=== PATIENT | male | born 1995 | race Hispanic/Latino ===

== ENCOUNTER 2021-09-13 11:01 | Inpatient (IN) | payer SELFPAY ==
[2021-09-13 13:03] LABS: Absolute Lymphocytes (CBC) 1.8 K/uL (0.7-4.9); Lymphocytes % 13.3 % (15.3-44.8); MPV 7.5 fL (7.6-11.3); RBC Red Blood Cell Count 4.84 M/uL (4.33-5.43)
[2021-09-13 13:17] LABS: ALT/SGPT 34 U/L (12-78); AST/SGOT 12 U/L (15-37); Albumin 3.7 g/dL (3.4-5.0); Alkaline Phosphatase 94 U/L (45-117); BUN Blood Urea Nitrogen 10 mg/dL (7-18); Bicarbonate 27 mmol/L (21-32); Bilirubin Total 0.6 mg/dL (0.2-1.0); Glucose Level 100 mg/dL (74-106); Lipase 31 U/L (73-393); Potassium 3.8 mmol/L (3.5-5.1); Protein, Total 8.4 g/dL (6.4-8.2); Sodium Level 137 mmol/L (136-145)
--- NOTE | 2021-09-13 13:25 | RAD REPORT ---
EXAM DESCRIPTION: CT - Abdomen Pelvis W Contrast - 09/13/2021 1:00 pm CLINICAL HISTORY: Abdominal pain/aneurysm COMPARISON: none. TECHNIQUE: Computed axial tomography of the abdomen pelvis was obtained. 100 cc Isovue-300 was admin istered intravenously. Oral contrast was not requested which limits evaluation of bowel. All CT scans are performed using dose optimization technique as appropriate and may include automated exposure control or mA/KV adjustment according to patient size. FINDINGS: Mild fatty liver Spleen, pancreas, adrenal and kidneys appear unremarkable. A 1.5 centimeter soft tissue structure li es between the spleen and left kidney. Normal appendix Several sigmoid diverticula. Marked stranding adjacent to the sigmoid colon. 2.5 centimeter low to in termediate density mass abuts the sigmoid compatible with early abscess. No free air. Trace amount of free fluid. Small inguinal hernias contain fat. Small umbilical hernia IMPRESSION: Marked sigmoid diverticulitis. 2.5 centimeter early abscess abuts sigmoid colon 1.5 centimeter soft tissue structure lies between the spleen and left kidney. 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 However, it is recommended that patient have a [facility] ultrasound in 3 months for re-evaluation
--- NOTE | 2021-09-13 14:00 | ER ---
Nurse's Notes [facility] Name: Nabor To Jr Age: 25 yrs Sex: Male : 1995 Arrival Date: 09/13/2021 Time: 11:04 Bed 14 Private MD: Diagnosis: Diverticulitis of large intestine with perforation and abscess Presentation: 09/13 13:39 Chief complaint: Patient states: LLQ cramping that began 1 week ago. Pt also states "at aa5 night I feel like I run fevers and I was having diarrhea but about 3 or 4 days I've been constipated now". Denies blood in stool. Coronavirus screen: At this time, the client does not indicate any symptoms associated with coronavirus-19. Ebola Screen: No symptoms or risks identified at this time. Initial Sepsis Screen: Does the patient meet any 2 criteria? HR > 90 bpm. Does the patient have a suspected source of infection? No. Patient's initial sepsis screen is negative. Risk Assessment: Do you want to hurt yourself or someone else? Patient reports no desire to harm self or others. Onset of symptoms was August 2021. 13:39 Acuity: JABARI 3 aa5 13:39 Method Of Arrival: Ambulatory aa5 Historical: - Allergies: 13:41 No Known Allergies; aa5 - PMHx: 13:41 None; aa5 - PSHx: 13:41 None; aa5 - Immunization history:: Flu vaccine is not up to date. - Social history:: Smoking status: Patient/guardian denies using tobacco. Screenin:00 Abuse screen: Denies threats or abuse. Nutritional screening: No deficits noted. aa5 Tuberculosis screening: No symptoms or risk factors identified. Fall Risk None identified. Assessment: 13:39 General: Appears uncomfortable, Behavior is calm, cooperative. Pain: Complains of pain aa5 in left lower quadrant Pain does not radiate. Pain currently is 4 out of 10 on a pain scale. Quality of pain is described as crampy, Pain began 1 week ago Is episodic, lasting a few minutes. Neuro: Level of Consciousness is awake, alert, obeys commands, Oriented to person, place, time, situation. Cardiovascular: Heart tones S1 S2 present Rhythm is regular. Respiratory: Airway is patent Respiratory effort is even, unlabored, Respiratory pattern is regular, symmetrical. GI: Abdomen is round non-distended, Bowel sounds present X 4 quads. Abd is soft X 4 quads Abdomen is tender to palpation in left lower quadrant Reports constipation, nausea, Patient currently denies vomiting. : No signs and/or symptoms were reported regarding the genitourinary system. EENT: No signs and/or symptoms were reported regarding the EENT system. Derm: Skin is pink, warm \\T\\ dry. Musculoskeletal: Range of motion: intact in all extremities. 15:02 Reassessment: Patient is alert, oriented x 3, equal unlabored respirations, skin aa5 warm/dry/pink. 16:15 Reassessment: Patient is alert, oriented x 3, equal unlabored respirations, skin aa5 warm/dry/pink. Patient states feeling better. Pain: Pain currently is 3 out of 10 on a pain scale. Vital Signs: 13:39 BP 140 / 66; Pulse 96; Resp 20 S; Temp 99.2(O); Pulse Ox 99% on R/A; Weight 108.86 kg aa5 (R); Height 5 ft. 7 in. (170.18 cm) (R); Pain 4/10; 15:00 BP 122 / 64; Pulse 92; Resp 18 S; Pulse Ox 98% on R/A; aa5 17:45 BP 108 / 70; Pulse 94; Resp 18 S; Temp 99.8(O); Pulse Ox 98% on R/A; aa5 13:39 Body Mass Index 37.59 (108.86 kg, 170.18 cm) aa5 ED Course: 11:04 Patient arrived in ED. jj6 12:07 Joey Edwards PA is PHCP. jmm 12:08 Charles Fam MD is Attending Physician. jmm 12:55 Inserted saline lock: 20 gauge in right forearm, using aseptic technique. Blood mb7 collected. 12:55 CBC with Diff Sent. mb7 12:55 CMP Sent. mb7 12:55 Lipase Sent. mb7 12:55 Patient has correct armband on for positive identification. mb7 13:02 CT Abd/Pelvis - IV Contrast Only In Process Unspecified. EDMS 13:33 Patient placed in an exam room, on a stretcher. aa5 13:39 Naz Menchaca, MEERA is Primary Nurse. aa5 13:41 Triage completed. aa5 13:58 Wesly Gallagher MD is Hospitalizing Provider. [facility] 16:13 SARS-COV-2 RT PCR (Document "Date of Onset" if Symptomatic) Sent. 18:00 No provider procedures requiring assistance completed. Patient admitted, IV remains in aa5 place. 09/14 18:01 Primary Nurse role handed off by Naz Menchaca, MEERA law Administered Medications: 09/13 15:02 Drug: morphine 4 mg Route: IVP; Site: right forearm; aa5 15:15 Follow up: Response: No adverse reaction aa5 15:02 Drug: Zofran (Ondansetron) 4 mg Route: IVP; Site: right forearm; aa5 15:15 Follow up: Response: No adverse reaction aa5 15:09 Drug: Zosyn (piperacillin-tazobactam) 3.375 grams Route: IVPB; Infused Over: 60 mins; aa5 Site: right forearm; 16:10 Follow up: IV Status: Completed infusion aa5 15:09 Drug: NS 0.9% (30 ml/kg) 30 ml/kg Route: IV; Rate: bolus; Site: right forearm; aa5 17:00 Follow up: IV Status: Completed infusion; IV Intake: 2000ml ; 2000cc per provider aa5 Intake: 17:00 IV: 2000ml; Total: 2000ml. aa5 Outcome: 13:59 Decision to Hospitalize by Provider. [facility] 18:00 Admitted to ER Hold. Please see [facility] for further documentation. aa5 18:00 Condition: stable 18:00 Instructed on the need for admit, Demonstrated understanding of instructions. 09/14 20:44 Admitted to Med/surg accompanied by tech, via wheelchair, room 210, with chart, Report ll3 called to MEERA Ruiz Condition: stable Instructed on the need for admit, Demonstrated understanding of instructions. 20:45 Patient left the ED. ll3 Signatures: Dispatcher [employer] EDMS Chyna Sullivan Joel, PA PA m Naz Menchaca, RN RN aa5 Ronna Robb6 Yefri Best RN RN ll3 Ayse Ramos Becky Trupin
--- NOTE | 2021-09-13 14:00 | EDPHYS ---
Physician Documentation [facility] Name: Nabor To Jr Age: 25 yrs Sex: Male : 1995 Arrival Date: 09/13/2021 Time: 11:04 Bed 14 Private MD: ED Physician Chrales Fam HPI: 09/13 13:10 This 25 yrs old Male presents to ER via Unassigned with complaints of jmm Abdominal Cramping, Fever, BOWEL ISSUES. 13:10 The patient presents with abdominal pain. Onset: The symptoms/episode began/occurred jmm gradually, 1 week(s) ago. The symptoms do not radiate. Associated signs and symptoms: Pertinent positives: constipation, diarrhea. The symptoms are described as achy. Modifying factors: The symptoms are alleviated by nothing, the symptoms are aggravated by nothing. This is a 25 year old male with no known chronic medical conditions that presents to the ED with complaints of left lower abdominal pain beginning approx 1 week ago with intermittent episodes of fever, diarrhea, and constipation. Denies surgical hx. Historical: - Allergies: 13:41 No Known Allergies; aa5 - PMHx: 13:41 None; aa5 - PSHx: 13:41 None; aa5 - Immunization history:: Flu vaccine is not up to date. - Social history:: Smoking status: Patient/guardian denies using tobacco. ROS: 13:10 Cardiovascular: Negative for chest pain, palpitations, and edema, Respiratory: Negative jmm for shortness of breath, cough, wheezing, and pleuritic chest pain. 13:10 Constitutional: Positive for body aches, fever. 13:10 Abdomen/GI: Positive for abdominal pain, nausea, diarrhea, constipation. 13:10 All other systems are negative. Exam: 13:10 Constitutional: This is a well developed, well nourished patient who is awake, alert, jmm and in no acute distress. Head/Face: atraumatic. Eyes: EOMI, no conjunctival erythema appreciated ENT: Moist Mucus Membranes Neck: Trachea midline, Supple Chest/axilla: Normal chest wall appearance and motion. Cardiovascular: Regular rate and rhythm. No edema appreciated Respiratory: Normal respirations, no respiratory distress appreciated 13:10 Back: Normal ROM Skin: General appearance color normal MS/ Extremity: Moves all extremities, no obvious deformities appreciated, no edema noted to the lower extremities Neuro: Awake and alert Psych: Behavior is normal, Mood is normal, Patient is cooperative and pleasant 13:10 Abdomen/GI: Inspection: abdomen appears normal, Bowel sounds: normal, Palpation: soft, mild abdominal tenderness, in the left lower quadrant. Vital Signs: 13:39 BP 140 / 66; Pulse 96; Resp 20 S; Temp 99.2(O); Pulse Ox 99% on R/A; Weight 108.86 kg aa5 (R); Height 5 ft. 7 in. (170.18 cm) (R); Pain 4/10; 15:00 BP 122 / 64; Pulse 92; Resp 18 S; Pulse Ox 98% on R/A; aa5 17:45 BP 108 / 70; Pulse 94; Resp 18 S; Temp 99.8(O); Pulse Ox 98% on R/A; aa5 13:39 Body Mass Index 37.59 (108.86 kg, 170.18 cm) aa5 MDM: 12:32 Patient medically screened. [facility] 13:46 Data reviewed: vital signs, nurses notes, lab test result(s), radiologic studies, CT [facility] scan. 13:56 ED course: I discussed the patient with Dr. Bryan whom will consult on admission. I [facility] discussed the patient with Dr. Gallagher whom accepted the patient to his service. Patient is currently afebrile, normotensive, with a normal HR. I do not currently suspect sepsis. Will admit due to development of abscess. Patient given IV antibiotics upon CT findings. Patient is currently alert and nontoxic in appearance. . 09/13 12:18 Order name: CBC with Diff; Complete Time: 13:[address] [facility] 09/13 12:18 Order name: CMP; Complete Time: 13:[address] [facility] 09/13 12:18 Order name: Lipase; Complete Time: 13:[address] [facility] 09/13 13:32 Order name: SARS-COV-2 RT PCR (Document "Date of Onset" if Symptomatic); Complete Time: [facility] 16:47 09/13 13:50 Order name: Blood Culture Adult (2) [facility] 09/13 15:01 Order name: CBC with Automated Diff [facility] 09/13 15:01 Order name: CBC with Automated Diff [facility] 09/13 15:01 Order name: Comprehensive Metabolic Panel [facility] 09/13 15:01 Order name: Comprehensive Metabolic Panel [facility] 09/13 15:01 Order name: Magnesium [facility] 09/13 15:01 Order name: Magnesium [facility] 09/13 16:40 Order name: Urine Dipstick-Ancillary; Complete Time: 16:40 [facility] 09/14 08:10 Order name: Gram Stain--Aerobic Bottle [facility] 09/14 09:51 Order name: Gram Stain--Aerobic Bottle [facility] 09/13 12:18 Order name: CT Abd/Pelvis - IV Contrast Only; Complete Time: 13:[address] [facility] 09/13 12:18 Order name: IV Saline Lock; Complete Time: 12:[address] [facility] 09/13 12:18 Order name: Labs collected and sent; Complete Time: 12:[address] [facility] 09/13 12:18 Order name: Urine Dipstick-Ancillary (obtain specimen); Complete Time: 15:[address] [facility] 09/13 15:00 Order name: CONS Physician Consult [facility] 09/13 15:01 Order name: NPO EDMO Administered Medications: 15:02 Drug: morphine 4 mg Route: IVP; Site: right forearm; aa5 15:15 Follow up: Response: No adverse reaction aa5 15:02 Drug: Zofran (Ondansetron) 4 mg Route: IVP; Site: right forearm; aa5 15:15 Follow up: Response: No adverse reaction aa5 15:09 Drug: Zosyn (piperacillin-tazobactam) 3.375 grams Route: IVPB; Infused Over: 60 mins; aa5 Site: right forearm; 16:10 Follow up: IV Status: Completed infusion aa5 15:09 Drug: NS 0.9% (30 ml/kg) 30 ml/kg Route: IV; Rate: bolus; Site: right forearm; aa5 17:00 Follow up: IV Status: Completed infusion; IV Intake: 2000ml ; 2000cc per provider aa5 Disposition Summary: 09/13/21 13:59 Hospitalization Ordered Hospitalization Status: Inpatient Admission jm Provider: Wesly Gallagher Condition: Stable jmm Problem: new jmm Symptoms: are unchanged jmm Bed/Room Type: Standard [facility] Location: Telemetry/MedSurg (Inpatient)(09/14/21 12:49) bd Room Assignment: 210(09/14/21 18:43) cg Diagnosis - Diverticulitis of large intestine with perforation and abscess [facility] Forms: - Medication Reconciliation Form [facility] - SBAR form [facility] Addendum: 09/18/2021 07:45 Co-signature as Attending Physician, Charles Fam MD I agree with the assessment and c gonzalez plan of care. Signatures: Dispatcher [employer] EDMS Chyna Sullivan Corey, MD MD cha Mickail, Joel, PA PA jmm Calderon, Audri RN RN aa5 Katarina Kauffman RN RN cg Corrections: (The following items were deleted from the chart) 09/13 20:31 13:59 Telemetry/MedSurg (Inpatient) [facility] 20: 13:59 [facility] 09/14 12:49 09/13 20:31 [facility] ER HOLD cg 09/14 12:49 09/13 20:31 ERHOLD- cg 09/14 13:25 12:49 407 bd 18:43 13:25 bd cg
[2021-09-13] MEDS ORDERED: PIPERACIL/TAZO 3.375 GM VIAL IV ONE (14:43)
[2021-09-13] MEDS ORDERED: ONDANSETRON 4 MG/2 ML VIAL ONE ×3 (14:43→23:44)
[2021-09-13] MEDS ORDERED: MORPHINE 4 MG/ML SYR ONE ×3 (14:43→23:44)
[2021-09-13] MEDS ORDERED: NA CHLORIDE 0.9% 2,000 ML ONE (14:43)
[2021-09-13] MEDS ORDERED: NA CHLORIDE 0.9% 100 ML IV ONE (14:43)
--- NOTE | 2021-09-13 16:05 | P.HP ---
Certification for Inpatient Patient admitted to: Inpatient With expected LOS: >2 Midnights Practitioner: I am a practitioner with admitting privileges, knowledge of patient current condition, hospital course, and medical plan of care. Services: Services provided to patient in accordance with Admission requirements found in Title 42 Section 412.3 of the Code of Federal Regulations Patient History Date of Service: 09/13/21 Reason for admission: perforated diverticulitis History of Present Illness: 25yo M with no significant past medical history presents to the ED with 1 week of worsening abdominal pain, associated with nausea, constipation, decreased appetite, and chills. Pain is in the lower left abdomen. Nothing seems to really make this better or worse. He denies any prior history of GI issues. No family history of GI issues. He has never had surgery. Pain does not radiate In the ED, CT abdomen/pelvis noted diverticulitis abscess. Allergies No Known Allergies Allergy (Unverified 09/13/21 15:39) - Past Medical/Surgical History Past Medical History: Patient denies medical history Past Surgical History: Patient denies surgical history - Family History Family History: Reviewed- Non-Contributory - Social History Smoking Status: Former smoker Alcohol use: Yes CD- Drugs: No Place of Residence: Home Review of Systems 10-point ROS is otherwise unremarkable Physical Examination - Physical Exam General: Alert, Oriented x3, Mild distress HEENT: EOMI, Sclerae nonicteric Neck: Supple, No LAD Respiratory: Clear to auscultation bilaterally, Normal air movement Cardiovascular: No edema, Regular rate/rhythm Gastrointestinal: Soft and benign, Non-distended, Tenderness (in LLQ) Musculoskeletal: No erythema, No tenderness Integumentary: No rashes, No significant lesion Neurological: Normal speech, Normal affect - Studies Laboratory Data (last 24 hrs) 09/13/21 12:53: Sodium 137, Potassium 3.8, BUN 10, Creatinine 0.93, Glucose 100, Total Bilirubin 0.6, AST 12 L, ALT 34, Alkaline Phosphatase 94, Lipase 31 L 09/13/21 12:53: WBC 13.7 H, Hgb 14.2, Hct 42.0, Plt Count 350 Assessment and Plan - Advance Directives Does patient have a Living Will: No Does patient have a Durable POA for Healthcare: No Physician Review Additional Text: Problem list Acute diverticulitis, perforation and abscess SIRS 1/4, for leukocytosis. Does not appear septic Continue IV Zosyn, IV fluids N.p.o., but okay for ice chips per surgery Serial abdominal exams Repeat labs in a.m. Pain medication as needed VTE: SCDs Code: full Dispo: home, ~3-4 days Time Spent Managing Pts Care (In Minutes): 65
--- NOTE | 2021-09-13 16:20 | P.CNS ---
Date of Consult: 09/13/21 PC: This 25-year-old male presented to the emergency room with severe left cordate quadrant abdominal pain for diagnosis and treatment. HPC: Patient states has had this pain about a week. Was very severe about 3 to 4 days ago. However today he could no longer stand it and came to the hospital PSHx: Negative PMHx: Negative Social Hx: No known allergies Sys R: No cough, wheeze, shortness of breath. No history of diabetes or hypertension. States he is otherwise in pretty good health. 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 O/E: Awake alert vital signs are stable, clinically looks surprisingly well HEENT: Not jaundiced Chest: Air entry equal bilaterally Abd: Tender with guarding in the left lower quadrant. [place]: Intact Data: Elevated white cell count, CT scan shows pelvic abscess consistent with perforated diverticular disease no free fluid noted Impression: Diverticular abscess Plan: The patient will be admitted to the hospital for IV fluids and antibiotics as well as analgesics. We will keep him on minimal oral intake for the next 24 hours. I am hoping that his clinical condition will improve and he will respond to antibiotics and not require surgical intervention. However this plan may change. This was explained to the patient and he understands and wants to proceed in this manner.
[2021-09-13 16:39] LABS: Urine Blood Negative (Negative); Urine Glucose Negative (Negative); Urine Protein Negative (Negative); Urine Specific Gravity 1.015 (1.005-1.030)
[2021-09-13] MEDS: PIPER TAZO 3.375 GM in NA CHLORIDE 0.9% 100 ML IV SCH (17:00)
[2021-09-13] MEDS ORDERED: D5 0.45 NS 1,000 ML IV ONE (18:52)
[2021-09-13 18:58] VITALS: BMI 37.5
[2021-09-13] MEDS: D5 0.45 NS 1,000 ML IV SCH (18:58)
[2021-09-13] MEDS: ONDANSETRON 4 MG/2 ML VIAL IV PRN ×2 (19:00→23:44)
[2021-09-13] MEDS: MORPHINE 4 MG/ML SYR IV PRN ×2 (19:00→23:45)
[2021-09-13] MEDS: DIAZEPAM 2 MG TABLET PO SCH (21:00)
[2021-09-13] MEDS ORDERED: DIAZEPAM 2 MG TABLET ONE (21:53)
[2021-09-14] MEDS: PIPER TAZO 3.375 GM in NA CHLORIDE 0.9% 100 ML IV SCH ×3 (01:00→17:00)
[2021-09-14] MEDS ORDERED: D5 0.45 NS 1,000 ML IV ONE (03:06)
[2021-09-14] MEDS ORDERED: NA CHLORIDE 0.9% 100 ML IV ONE ×3 (03:58→18:16)
[2021-09-14] MEDS ORDERED: PIPERACIL/TAZO 3.375 GM VIAL IV ONE ×3 (03:58→18:14)
[2021-09-14] MEDS: D5 0.45 NS 1,000 ML IV SCH ×3 (04:06→21:28)
[2021-09-14 04:41] LABS: Absolute Lymphocytes (CBC) 1.9 K/uL (0.7-4.9); Hematocrit 36.8 % (39.6-49.0); Lymphocytes % 15.6 % (15.3-44.8); MPV 7.5 fL (7.6-11.3); RBC Red Blood Cell Count 4.31 M/uL (4.33-5.43)
[2021-09-14 05:06] LABS: Bilirubin Total 0.7 mg/dL (0.2-1.0); Magnesium 2.2 mg/dL (1.8-2.4); Potassium 3.9 mmol/L (3.5-5.1); Protein, Total 6.9 g/dL (6.4-8.2)
--- NOTE | 2021-09-14 06:54 | P.PN ---
Date of Service: 09/14/21 Subjective: pain medication helping still with discomfort in LLQ no nausea/vomiting voiding, no BM ROS: 10 point ROS as noted above, otherwise negative Physical exam GEN: Alert, oriented, NAD HEENT: Normal conjunctiva, sclera anicteric CV: Regular rate and rhythm, no edema Pulm: Nonlabored respirations on room air ABD: moderate tenderness to palpation in LLQ Neuro: Normal speech, normal affect Problem list Acute sigmoid diverticulitis, perforation and abscess (~2.5cm) SIRS 1/4, for leukocytosis. Does not appear septic continue medical management Continue IV Zosyn, IV fluids N.p.o., but okay for ice chips per surgery Serial abdominal exams Pain medication as needed VTE: SCDs Code: full Dispo: home, ~2-3 days Time Spent Managing Pts Care (In Minutes): 35
[2021-09-14] MEDS ORDERED: MORPHINE 4 MG/ML SYR ONE ×3 (08:04→20:28)
[2021-09-14] MEDS: MORPHINE 4 MG/ML SYR IV PRN ×3 (08:05→20:34)
[2021-09-14] MEDS: ONDANSETRON 4 MG/2 ML VIAL IV PRN ×2 (08:05→14:33)
[2021-09-14] MEDS ORDERED: ONDANSETRON 4 MG/2 ML VIAL ONE ×2 (08:05→14:26)
[2021-09-14] MEDS: DIAZEPAM 2 MG TABLET PO SCH (21:28)
[2021-09-14] MEDS ORDERED: HYDROMORPHONE HCL 1 MG/ML INJ IV ONE (23:25)
[2021-09-14] MEDS ORDERED: HYDROMORPHONE HCL 1 MG/ML INJ ONE (23:32)
[2021-09-15] MEDS: PIPER TAZO 3.375 GM in NA CHLORIDE 0.9% 100 ML IV SCH ×3 (01:22→17:25)
[2021-09-15] MEDS: MORPHINE 4 MG/ML SYR IV PRN ×5 (04:02→21:11)
[2021-09-15 05:49] LABS: Absolute Lymphocytes (CBC) 1.5 K/uL (0.7-4.9); Lymphocytes % 18.7 % (15.3-44.8); MPV 7.6 fL (7.6-11.3); RBC Red Blood Cell Count 4.53 M/uL (4.33-5.43)
[2021-09-15 06:00] LABS: Bilirubin Total 0.5 mg/dL (0.2-1.0); Magnesium 2.3 mg/dL (1.8-2.4); Potassium 3.6 mmol/L (3.5-5.1)
[2021-09-15] MEDS: D5 0.45 NS 1,000 ML IV SCH ×2 (08:37→17:25)
[2021-09-15] MEDS: ONDANSETRON 4 MG/2 ML VIAL IV PRN ×2 (08:38→17:26)
[2021-09-15] MEDS ORDERED: POTASSIUM CL SA 10 MEQ TAB PO ONE (09:00)
--- NOTE | 2021-09-15 15:14 | P.PN ---
Date of Service: 09/15/21 S: Patient feels somewhat better today, but still having some cramping abdominal pain. O: White cell count is gradually coming down. Patient remains afebrile. Abdominal exam shows less tenderness, no guarding today in the left lower quadrant. A: Clinically patient appears to be markedly improved since his initial presentation. P: We will start him on some clear liquids today. Continue with IV antibiotics. Advance diet as tolerated.
--- NOTE | 2021-09-15 16:05 | P.PN ---
Subjective Date of Service: 09/15/21 Chief Complaint: perforated diverticulitis States his abdominal pain is better. No BM but he has been passing gas. No nausea or vomiting. Physical Examination - Vital Signs Temperature: 97.6 F Blood Pressure: 104/53 Pulse: 64 Respirations: 15 Pulse Ox (%): 97 - Studies Microbiology Data (last 24 hrs): 09/13/21 14:50 Blood - Blood Blood Culture Gram Stain - Final Assessment And Plan - Plan Physical exam GEN: Alert, oriented, NAD HEENT: Normal conjunctiva, sclera anicteric CV: Regular rate and rhythm, no edema Pulm: Nonlabored respirations on room air ABD: moderate tenderness to palpation in LLQ Neuro: No focal motor deficit. Problem list Acute sigmoid diverticulitis, perforation and abscess (~2.5cm) Plan: Patient seen by Dr. Bryan today. He is started on clear liquid diet. Leukocytosis resolved continue medical management-IV Zosyn, antiemetics and pain management as needed. IV fluids Serial abdominal exams. General surgery-Dr. Bryan to follow. VTE: SCDs Code: full
[2021-09-15] MEDS ORDERED: DIAZEPAM 5 MG TABLET PO ONE (21:00)
[2021-09-15] MEDS: DIAZEPAM 2 MG TABLET PO SCH (21:00)
[2021-09-16] MEDS: PIPER TAZO 3.375 GM in NA CHLORIDE 0.9% 100 ML IV SCH ×3 (00:45→16:31)
[2021-09-16] MEDS: MORPHINE 4 MG/ML SYR IV PRN ×5 (00:47→20:40)
[2021-09-16 04:18] LABS: Absolute Lymphocytes (CBC) 2.1 K/uL (0.7-4.9); Hematocrit 38.8 % (39.6-49.0); Lymphocytes % 27.8 % (15.3-44.8); MPV 7.3 fL (7.6-11.3); RBC Red Blood Cell Count 4.59 M/uL (4.33-5.43)
[2021-09-16 04:27] LABS: Potassium 4.1 mmol/L (3.5-5.1)
[2021-09-16] MEDS: D5 0.45 NS 1,000 ML IV SCH ×2 (04:49→14:35)
[2021-09-16] MEDS: ONDANSETRON 4 MG/2 ML VIAL IV PRN (08:42)
--- NOTE | 2021-09-16 16:43 | P.PN ---
Subjective Date of Service: 09/16/21 Chief Complaint: perforated diverticulitis States his abdominal pain is better. No BM yet. No nausea or vomiting. Patient tolerating clear liquid diet. He reports developing abdominal discomfort with full liquid diet. Physical Examination - Vital Signs Temperature: 97.7 F Blood Pressure: 109/55 Pulse: 67 Respirations: 16 Pulse Ox (%): 97 Assessment And Plan - Plan Physical exam GEN: Alert, oriented, NAD HEENT: Normal conjunctiva, sclera anicteric CV: Regular rate and rhythm, no edema Pulm: Nonlabored respirations on room air ABD: moderate tenderness to palpation in LLQ, no rebound tenderness. Neuro: No focal motor deficit. Problem list Acute sigmoid diverticulitis, perforation and abscess (~2.5cm) Plan: Patient seen by Dr. Bryan. Continue clear liquid diet Leukocytosis resolved continue medical management-IV Zosyn, antiemetics and pain management as needed. IV fluids Serial abdominal exams. General surgery-Dr. Bryan to follow. May repeat CT abdomen to follow the abscess. VTE: Heparin subQ. Code: full
[2021-09-16] MEDS: HEPARIN 5000 UNIT/ML 1 ML VIAL SQ SCH (16:56)
[2021-09-16] MEDS: DIAZEPAM 2 MG TABLET PO SCH (20:40)
[2021-09-16] MEDS: ACETAMINOPHEN 500 MG TAB PO PRN (20:40)
[2021-09-17] MEDS: PIPER TAZO 3.375 GM in NA CHLORIDE 0.9% 100 ML IV SCH ×3 (00:11→18:15)
[2021-09-17] MEDS: HEPARIN 5000 UNIT/ML 1 ML VIAL SQ SCH ×3 (00:12→18:15)
[2021-09-17] MEDS: MORPHINE 4 MG/ML SYR IV PRN ×6 (00:12→22:41)
[2021-09-17] MEDS: D5 0.45 NS 1,000 ML IV SCH ×3 (00:12→22:40)
[2021-09-17 06:13] LABS: Hematocrit 38.6 % (39.6-49.0); Lymphocytes % 32.3 % (15.3-44.8); MPV 7.4 fL (7.6-11.3); RBC Red Blood Cell Count 4.53 M/uL (4.33-5.43)
[2021-09-17 06:28] LABS: Potassium 4.1 mmol/L (3.5-5.1)
[2021-09-17] MEDS: ACETAMINOPHEN 500 MG TAB PO PRN (13:14)
[2021-09-17] MEDS ORDERED: BISACODYL 10 MG RECTAL SUPP PR PRN (13:21)
[2021-09-17] MEDS ORDERED: DIAZEPAM 2 MG TABLET PO PRN (13:23)
--- NOTE | 2021-09-17 13:32 | P.PN ---
Date of Service: 09/17/21 S: Patient has no specific complaints. Still says he has abdominal pain, requiring morphine. O: Vital signs are stable, patient remains afebrile. Abdomen mild tenderness to the left lower quadrant but much improved. A: Patient is improving, needs to ambulate in the hallways. P: Continue current therapy. Patient needs to get up out of bed, ambulate more, patient may take a shower. We will try and decrease pain medicine. Ensure 1 can p.o. every 8 hours as needed. We will also give patient a suppository.
[2021-09-17] MEDS: ONDANSETRON 4 MG/2 ML VIAL IV PRN ×2 (16:22→22:42)
--- NOTE | 2021-09-17 16:42 | P.PN ---
Subjective Date of Service: 09/17/21 Chief Complaint: perforated diverticulitis Patient states overall his pain is better but he does experience intermittent exacerbations with meals. No BM yet. Stated he is passing gas. No nausea or vomiting. He is tolerating liquid diet. Physical Examination - Vital Signs Temperature: 97.5 F Blood Pressure: 116/58 Pulse: 73 Respirations: 16 Pulse Ox (%): 95 - Studies Microbiology Data (last 24 hrs): 09/13/21 14:50 Blood - Blood Aerobic Blood Culture - Final Staph Hominis 09/13/21 14:50 Blood - Blood Blood Culture Gram Stain - Final Assessment And Plan - Plan Physical exam GEN: Alert, oriented, NAD HEENT: Normal conjunctiva, sclera anicteric CV: Regular rate and rhythm, no edema Pulm: Nonlabored respirations on room air ABD: moderate tenderness to palpation in LLQ, no rebound tenderness. Neuro: No focal motor deficit. Problem list Acute sigmoid diverticulitis, perforation and abscess (~2.5cm) Plan: Dr. Bryan is following Continue clear liquid diet Leukocytosis resolved continue medical management-IV Zosyn, antiemetics and pain management as needed. IV fluids Serial abdominal exams. Suppository for constipation today Increase activity as tolerated. VTE: Heparin subQ. Code: full
[2021-09-17] MEDS: ENSURE ENLIVE 237 ML CAN PO SCH (20:22)
[2021-09-18] MEDS: HEPARIN 5000 UNIT/ML 1 ML VIAL SQ SCH ×3 (01:00→17:00)
[2021-09-18] MEDS: PIPER TAZO 3.375 GM in NA CHLORIDE 0.9% 100 ML IV SCH ×3 (01:13→17:25)
[2021-09-18 04:04] LABS: Absolute Lymphocytes (CBC) 2.1 K/uL (0.7-4.9); Hematocrit 40.7 % (39.6-49.0); Lymphocytes % 28.5 % (15.3-44.8); MPV 7.3 fL (7.6-11.3); RBC Red Blood Cell Count 4.79 M/uL (4.33-5.43)
[2021-09-18] MEDS: ENSURE ENLIVE 237 ML CAN PO SCH ×2 (09:00→14:00)
--- NOTE | 2021-09-18 10:06 | P.PN ---
Date of Service: 09/18/21 S: Patient feels much better today, regular bowel movement. Minimal pain and discomfort today. O: Vital signs are stable, patient remains afebrile. Abdomen is soft, minimal tenderness A: Responding well to antibiotic treatment for his intra-abdominal abscess P: Patient will most likely be discharged in the a.m. He will go home on antibiotics, and a soft diet. He will also be given some pain medicine. He will be seeing me next Tuesday in my office. He knows should he have any questions or problems he can return to the emergency room, or contact me.
[2021-09-18] MEDS: MORPHINE 4 MG/ML SYR IV PRN ×2 (10:08→22:02)
--- NOTE | 2021-09-18 11:45 | P.PN ---
Subjective Date of Service: 09/18/21 Chief Complaint: perforated diverticulitis Patient states he is much better today. He states that the pain has clinically improved. He had a bowel movement last night. He is tolerating full liquid diet. Physical Examination - Vital Signs Temperature: 97.2 F Blood Pressure: 105/56 Pulse: 50 Respirations: 17 Pulse Ox (%): 100 - Studies Microbiology Data (last 24 hrs): 09/13/21 14:50 Blood - Blood Aerobic Blood Culture - Final Staph Hominis 09/13/21 14:50 Blood - Blood Blood Culture Gram Stain - Final Assessment And Plan - Plan Physical exam GEN: Alert, oriented, NAD HEENT: Normal conjunctiva, sclera anicteric CV: Regular rate and rhythm, no edema Pulm: Nonlabored respirations on room air ABD: Mild LLQ tenderness, no rebound tenderness. Neuro: No focal motor deficit. Problem list Acute sigmoid diverticulitis, perforation and abscess (~2.5cm) Plan: Dr. Bryan is following Full liquid diet Leukocytosis resolved continue medical management-IV Zosyn, antiemetics and pain management as needed. Transition to Augmentin on discharge Continue IV fluids Activity as tolerated. VTE: Heparin subQ. Code: full
[2021-09-18] MEDS: D5 0.45 NS 1,000 ML IV SCH ×2 (14:49→15:00)
[2021-09-18] MEDS: ENSURE HIGH PROTEIN 237 ML CAN PO SCH (19:55)
[2021-09-19] MEDS: PIPER TAZO 3.375 GM in NA CHLORIDE 0.9% 100 ML IV SCH ×2 (00:23→08:52)
[2021-09-19] MEDS: HEPARIN 5000 UNIT/ML 1 ML VIAL SQ SCH ×2 (00:23→08:52)
[2021-09-19] MEDS: D5 0.45 NS 1,000 ML IV SCH (00:30)
[2021-09-19 08:38] VITALS: TEMP 97.5
[2021-09-19] MEDS: ENSURE HIGH PROTEIN 237 ML CAN PO SCH (08:52)
[2021-09-19 09:00] VITALS: O2SAT 93
--- NOTE | 2021-09-19 11:41 | P.DS ---
Admission Date: 09/13/21 Discharge Date: 09/19/21 Disposition: ROUTINE DISCHARGE Discharge Condition: FAIR Reason for Admission: perforated diverticulitis Consultations: General surgery-Dr. Bryan - Problems (1) Diverticular disease of intestine with perforation and abscess Status: Acute Brief History of Present Illness: 25yo M with no significant past medical history presents to the ED with 1 week of worsening abdominal pain, associated with nausea, constipation, decreased appetite, and chills. Pain in the lower left abdomen. He denies any prior history of GI issues. No family history of GI issues. He has never had surgery. In the ED, CT abdomen/pelvis noted diverticulitis abscess. Patient admitted for further management. Hospital Course: Patient admitted to the medical floor and started on IV Zosyn. Also treated with supportive measures including IV fluids. He was seen in consultation by Dr. Bryan who recommended medical management. His abdominal pain improved with IV antibiotics, serial abdominal examination revealed benign abdomen. He had a bowel movement after Dulcolax suppository. He also tolerated diet advancement to full liquid. He currently denies any abdominal pain, no nausea or vomiting. He has been ambulatory. Patient deemed stable for discharge per Dr. Bryan. He is discharged with Augmentin and Flagyl. He will follow with Dr. Bryan next week in the office. Vital Signs/Physical Exam: Temp Pulse Resp BP Pulse Ox 97.5 F 60 16 109/58 L 97 09/19/21 08:00 09/19/21 08:00 09/19/21 08:00 09/19/21 08:00 09/19/21 08:00 General: Alert, In no apparent distress, Oriented x3 HEENT: Mucous membr. moist/pink Neck: JVD not distended Respiratory: Clear to auscultation bilaterally, Normal air movement Cardiovascular: No edema, Regular rate/rhythm, Normal S1 S2 Gastrointestinal: Normal bowel sounds, Soft and benign, Non-distended, No tenderness Musculoskeletal: No swelling, No tenderness Integumentary: No rashes Neurological: Normal strength at 5/5 x4 extr Laboratory Data at Discharge: WBC 7.5 K/uL (4.3-10.9) D 09/18/21 03:24 Hgb 14.2 g/dL (13.6-17.9) 09/18/21 03:24 Hct 40.7 % (39.6-49.0) 09/18/21 03:24 Plt Count 383 K/uL (152-406) 09/18/21 03:24 Sodium 137 mmol/L (136-145) 09/18/21 03:24 Potassium 4.0 mmol/L (3.5-5.1) 09/18/21 03:24 BUN 6 mg/dL (7-18) L 09/18/21 03:24 Creatinine 1.07 mg/dL (0.55-1.3) 09/18/21 03:24 Glucose 91 mg/dL (74-106) 09/18/21 03:24 Magnesium 2.1 mg/dL (1.8-2.4) 09/17/21 16:12 Total Bilirubin 0.5 mg/dL (0.2-1.0) 09/15/21 05:14 AST 9 U/L (15-37) L 09/15/21 05:14 ALT 23 U/L (12-78) 09/15/21 05:14 Alkaline Phosphatase 76 U/L (45-117) 09/15/21 05:14 Lipase 31 U/L (73-393) L 09/13/21 12:53 Home Medications: Amox/Clavulanate [Augmentin 875-125 Tab] 1 each PO BID #16 tab 09/19/21 Codeine/APAP [Tylenol W/Codeine #3 tab] 1 tab PO Q6HP PRN #20 tab 09/19/21 metroNIDAZOLE [Metronidazole] 500 mg PO TID #24 tablet 09/19/21 New Medications: Codeine/APAP [Tylenol W/Codeine #3 tab] 1 tab PO Q6HP PRN #20 tab PRN Reason: Pain Amox/Clavulanate [Augmentin 875-125 Tab] 1 each PO BID #16 tab metroNIDAZOLE [Metronidazole] 500 mg PO TID #24 tablet Diet: Regular (Advance from full liquid to low residue diet as tolerated.) Activity: Ad mireille Followup: Leonides Bryan MD [ACTIVE - CAN ADMIT] - 09/22/21 (next week Tuesday09/22/2021, call to schedule an appointment time) Unknown,U [Primary Care Provider] - Time spent managing pt's care (in minutes): 33
[2021-09-19 12:05] VITALS: BP 109/57
== END 2021-09-19 13:40 | disposition home or self-care (01) | DRG 392 ==
LOC: ER 11:01 → ERHOLD 14:57 → 4TH 09-14 13:10 → ERHOLD 09-14 13:53 → 2ND 09-14 19:08
PROVIDERS: ADMIT Hospitalist; ATTEND Hospitalist
DX: K57.20 Diverticulitis of large intestine with perforation and abscess without bleeding (principal); Z87.891 Personal history of nicotine dependence; Z20.822 Contact with and (suspected) exposure to COVID-19
CPT/HCPCS: 36415; 74177; 80048; 80053; 81003; 83690; 83735; 85025; 87040; 87077; 87186; 87205; 94760; 96365; 96366; 96368; 96375; 99285; J1170; J1644; J2405; J2543; J7030; J7799; Q9967; U0003